=== PATIENT | female | born 2000 | race Caucasian/White ===

== ENCOUNTER 2019-03-20 08:35 | Emergency (ER) | payer BC, SELFPAY ==
[2019-03-20 08:45] VITALS: BP 148/87; PULSE 73; RESP 16; TEMP 36.9; O2SAT 98
--- NOTE | 2019-03-20 08:50 | ED.URI ---
HPI - URI/Sore Throat General Chief Complaint: Upper Respiratory Infection Stated Complaint: sore throat and congestion Time Seen by Provider: 03/20/19 08:52 Source: patient and family Mode of arrival: ambulatory Limitations: no limitations History of Present Illness HPI Narrative: Patient presents with a 2-day history of sore throat cough and nasal congestion. Patient has not taken thing over the counter for symptoms denies any fever no shortness of breath no chest pain. Patient denies any drooling and has no trouble swallowing. Patient states she needs a work note because she did call in sick today due to her sore throat. MD elicited complaint: fever, cough, sore throat and nasal congestion Related Data Home Medications Medication Instructions Recorded Confirmed No Home Medications 03/20/19 03/20/19 Allergies Allergy/AdvReac Type Severity Reaction Status Date / Time No Known Allergies Allergy Unknown Verified 03/20/19 08:58 Review of Systems Review of Systems: Narrative: CONSTITUTIONAL: Denies fever, chills, or sweats. EYES: Denies visual changes, redness, or discharge. ENT: Sore throat, nasal congestion and drainage CARDIOVASCULAR: Denies chest pain, palpitations, or edema. RESPIRATORY: Denies cough or dyspnea. GASTROINTESTINAL: Denies abdominal pain, nausea, vomiting, or diarrhea. GENITOURINARY: Denies dysuria or hematuria. SKIN: Denies rash or itching. MUSCULOSKELETAL: Denies back pain, joint pain, or myalgia. NEUROLOGIC: Denies headache, numbness, or weakness. PSYCHIATRIC: Denies anxiety or depression. All systems reviewed & are unremarkable except as noted in HPI and below PMFSH Comments At time of signature, agree with nursing past medical, surgical, social and family history. There is no relevant family history pertinent to the presenting complaint Exam Narrative: Exam Narrative: GENERAL: Well-appearing, well-nourished, and in no acute distress. HEAD: Normocephalic, atraumatic. EYES: PERRLA and EOMI. ENT: Moderate pharyngeal erythremia no exudate no trismus able to open mouth fully. Mild postnasal drainage. Bilateral TM dullness NECK: Supple. CHEST: Clear to auscultation. No respiratory distress. HEART: Regular rate and rhythm. No murmur heard. Normal peripheral pulses. ABDOMEN: Soft, nontender, nondistended, normal active bowel sounds. EXTREMITIES: Normal range of motion. No edema. SKIN: Warm, dry, no rash. NEURO: No focal deficits. Alert and oriented x3. Bhavin Coma Scale Eye Opening: Spontaneous 4 Bhavin Coma Scale Motor: Obeys Commands 6 Bhavin Coma Scale Verbal: Oriented 5 Nilwood Coma Scale Total 15 Course Vital Signs Vital signs: Vital Signs Temperature 36.9 C 03/20/19 08:45 Pulse Rate 73 03/20/19 08:45 Respiratory Rate 16 03/20/19 08:45 Blood Pressure 148/87 H 03/20/19 08:45 Pulse Oximetry 98 03/20/19 08:45 Temperature 36.9 C 03/20/19 08:45 Pulse Rate 73 03/20/19 08:45 Respiratory Rate 16 03/20/19 08:45 Blood Pressure 148/87 H 03/20/19 08:45 Pulse Oximetry 98 03/20/19 08:45 Addressed elevated BP today. Today's blood pressure higher than recommended range. Discussed importance of follow -up with PCP and possible retirement effects/cardiovascular events related to HTN. Currently patient denies headache, dizziness, vision changes, CP or shortness of breath. Please CRISTINA schedule a followup visit with your personal physician for further evaluation and treatment. Including recheck and discussion of your blood pressure. If your symptoms persist, change or worsen significantly before you can contact your personal physician then please, without delay, go to the emergency department for further evaluation MDM - URI/Sore Throat Differential Diagnosis Differential diagnosis: Likely upper respiratory infection, otitis media, sinusitis and viral infection Lab Data Labs: Strep Screen Positive Group A Strep *(Reference Range: Negative)*
== END 2019-03-20 09:00 | disposition home or self-care (01) ==
PROVIDERS: Emergency Provider Nurse Practitioner Family
DX: J02.0 Streptococcal pharyngitis (principal)
CPT/HCPCS: 87880; 99213; G0463

== ENCOUNTER 2021-02-14 10:04 | Emergency (ER) | payer SELFPAY ==
--- NOTE | 2021-02-14 10:10 | ED.URI ---
HPI - URI/Sore Throat General Chief Complaint: Abdominal Pain Stated Complaint: nausea fever Time Seen by Provider: 02/14/21 10:10 Source: patient and RN notes reviewed History of Present Illness HPI Narrative: Patient is a 20-year-old female who presents the urgent care with complaints of abdominal pain, nausea, vomiting, diarrhea. Patient states that her symptoms started last night and she is aware that she needs her gallbladder removed. Patient has an appointment at [facility] on 28 February for the removal however her symptoms have exacerbated. Patient has not called her surgeon. States that the medication that they gave her for her abdominal pain is out . Patient is tearful but otherwise no acute distress noted. Patient aware of the plan of care. Some parts of this dictation were generated by voice recognition software and may contain typographical and/or grammatical inaccuracies. Related Data Home Medications Medication Instructions Recorded Confirmed No Home Medications 03/20/19 03/20/19 Allergies Allergy/AdvReac Type Severity Reaction Status Date / Time No Known Allergies Allergy Unknown Verified 02/14/21 10:35 Review of Systems Review of Systems: CONSTITUTIONAL: Denies fever, chills, or sweats. EYES: Denies visual changes, redness, or discharge. ENT: Denies rhinorrhea, congestion, sore throat, or otalgia. CARDIOVASCULAR: Denies chest pain, palpitations, or edema. RESPIRATORY: Denies cough or dyspnea. GASTROINTESTINAL: Reports abdominal pain, nausea, vomiting GENITOURINARY: Denies dysuria or hematuria. SKIN: Denies rash or itching. MUSCULOSKELETAL: Denies back pain, joint pain, or myalgia. NEUROLOGIC: Denies headache, numbness, or weakness. All other systems reviewed are negative, except as documented in HPI. PMFSH Comments At the time of my signature, I reviewed and agree with the nursing past medical, surgical, social, and family history. There is no relevant family history pertinent to the patient complaint. Exam Narrative: GENERAL: This is a well-nourished, well-developed patient, in no apparent distress. Tearful HEAD: normocephalic, atraumatic. EYES: PERRL. Sclera clear/white. Vision is grossly intact. EARS: External ears normal NOSE: External nose normal with no obvious nasal discharge, nares without redness, no rhinorrhea. THROAT: Mucous membranes moist NECK: Neck supple CARDIOVASCULAR: Regular rate and rhythm without murmurs, gallops, or rubs. RESPIRATORY: Clear to auscultation. Breath sounds equal bilaterally. No wheezes, rales, or rhonchi. GASTROINTESTINAL: Diffuse abdominal tenderness. Bowel sounds are active. Guarding. Moderate tenderness to the right upper quadrant SKIN: warm, intact with no suspicious lesions or rash, good texture and turgor. NEURO: awake, alert, and oriented to person, place and time. There were no obvious focal neurologic abnormalities. EXTREMITIES: No clubbing, cyanosis, or edema. Course Course Level of Care: Express Care Visit Vital Signs Vital signs: Vital Signs Temperature 99.5 F 02/14/21 10:15 Pulse Rate 88 02/14/21 10:15 Respiratory Rate 16 02/14/21 10:15 Blood Pressure 130/74 02/14/21 10:15 Pulse Oximetry 98 02/14/21 10:15 Temperature 99.5 F 02/14/21 10:15 Pulse Rate 88 02/14/21 10:15 Respiratory Rate 16 02/14/21 10:15 Blood Pressure 130/74 02/14/21 10:15 Pulse Oximetry 98 02/14/21 10:15 Reviewed MDM - URI/Sore Throat MDM Narrative Medical decision making narrative: Advised the patient to go to the emergency room based on her symptoms. It would be advised to go to the hospital that your surgery is scheduled for on February 28. Until then remain n.p.o., do not eat or drink anything. Patient does not wish to be transferred to the emergency room but is aware that she needs to go directly to the emergency room after she collects her belongings at home and prepares for possible admission. Patient is currently s
[2021-02-14 10:15] VITALS: BP 130/74; PULSE 88; RESP 16; TEMP 37.5; O2SAT 98
== END 2021-02-14 10:40 | disposition home or self-care (01) ==
PROVIDERS: Emergency Provider Nurse Practitioner Family
DX: K82.9 Disease of gallbladder, unspecified (principal)
CPT/HCPCS: 99211; G0463

== ENCOUNTER 2022-09-21 12:44 | Emergency (ER) | payer OTHER, SELFPAY ==
[2022-09-21 12:58] VITALS: BP 130/80; PULSE 69; RESP 16; TEMP 36.8; O2SAT 99
--- NOTE | 2022-09-21 13:01 | ED.EYEPROB ---
HPI - Eye Problem General Chief complaint: Eye Problems Stated complaint: Bleach in Eye Source: patient and RN notes reviewed History of Present Illness HPI Narrative: 22 yo F presents to urgent care with complaints of right eye pain. 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 Pt presents with burning to her right eye. Pt does not wear contacts or glasses. Pt presents picture of product which was Zep Mold and Mildew [employer]. Related Data Home Medications Medication Instructions Recorded Confirmed No Home Medications 09/21/22 09/21/22 Allergies Allergy/AdvReac Type Severity Reaction Status Date / Time No Known Allergies Allergy Unknown Verified 09/21/22 13:05 Review of Systems Review of Systems: CONSTITUTIONAL: Denies fever, chills, or sweats. EYES: right eye pain ENT: Denies otalgia and sore throat CARDIOVASCULAR: Denies chest pain, palpitations, or edema. RESPIRATORY: Denies cough or dyspnea. GASTROINTESTINAL: Denies abdominal pain, nausea, vomiting, or diarrhea. GENITOURINARY: Denies dysuria or hematuria. SKIN: burning skin around right lateral orbit MUSCULOSKELETAL: Denies back pain, joint pain, or myalgia. NEUROLOGIC: Denies headache, numbness, or weakness. Pertinent positives per HPI. [facility] Family History Family History (Updated 10/26/21 @ 10:45 by Manisha Mehta MA) Father Diabetes mellitus Mother Disorder of thyroid Social History Social History (Updated 10/26/21 @ 10:48 by Manisha Mehta MA) Tobacco type: e-cigarettes/vaping Alcohol intake: current Alcohol use details: occasionally Substance use: never Living arrangements: with family Gender identity (if verbalized by the patient): Female Comments At the time of my signature, I reviewed and agree with the nursing past medical, surgical, social, and family history. There is no relevant family history pertinent to the patient complaint. Exam Narrative: GENERAL: This is a well-nourished, well-developed patient, in no apparent distress. HEAD: normocephalic, atraumatic. EYES: Sclera clear/white. Pt able to open her affected eye. Reports mild photophobia EARS: External ears normal, auditory canals clear and without drainage, TMs normal without perforation. Hearing grossly intact. NOSE: External nose normal with no obvious nasal discharge, nares without redness, no rhinorrhea. THROAT: Mucous membranes moist, posterior pharynx clear. NECK: Neck supple, non-tender without lymphadenopathy, masses or thyromegaly. CARDIOVASCULAR: Regular rate RESPIRATORY: No respiratory distress SKIN: mildly erythremic skin noted around right lateral orbit. NEURO: awake, alert, and oriented to person, place and time. There were no obvious focal neurologic abnormalities. Course Course Level of Care: Express Care Visit Vital Signs Vital signs: Vital Signs Temperature 98.2 F 09/21/22 12:58 Pulse Rate 69 09/21/22 12:58 Respiratory Rate 16 09/21/22 12:58 Blood Pressure 130/80 09/21/22 12:58 Pulse Oximetry 99 09/21/22 12:58 Oxygen Delivery Room Air 09/21/22 12:58 Temperature 98.2 F 09/21/22 13:06 Pulse Rate 69 09/21/22 13:06 Respiratory Rate 16 09/21/22 13:06 Blood Pressure 130/80 09/21/22 13:06 Pulse Oximetry 99 09/21/22 13:06 Oxygen Delivery Room Air 09/21/22 13:06 Reviewed MDM - Eye Problem MDM Narrative Medical decision making narrative: Spoke to Alma Delia with Poison Control who recommends pt be transferred to ED to evaluate pt's right eye pH. Pt agrees to go to [facility] ED. Report given to Montserrat DUBON and pt is accepted for Shayna Benson NP. Pt is stable and is in no acute distress. Poison control case #: [id number] Differential Diagnosis Differential diagnosis: Likely corneal abrasion, acute iritis and other (eye FB) Critical Care Time Cri
[2022-09-21 13:06] VITALS: BP 130/80; PULSE 69; RESP 16; TEMP 36.8; O2SAT 99
== END 2022-09-21 13:26 | disposition short-term general hospital (02) ==
PROVIDERS: Emergency Provider Nurse Practitioner Family
DX: T26.91XA Corrosion of right eye and adnexa, part unspecified, initial encounter (principal)
CPT/HCPCS: 99212; G0463

== ENCOUNTER 2022-11-17 13:09 | Emergency (ER) | payer OTHER, SELFPAY ==
[2022-11-17 13:21] VITALS: BP 121/87; PULSE 68; RESP 16; TEMP 36.6; O2SAT 97
--- NOTE | 2022-11-17 14:31 | ED.GENADULT ---
HPI - General Adult General Chief complaint: Upper Respiratory Infection Stated complaint: strep throat test Source: patient Mode of arrival: ambulatory Limitations: no limitations History of Present Illness HPI narrative: Patient presents for evaluation of sore throat for the last day. She denies any fever chills, nausea, vomiting, cough, shortness of breath, diarrhea, otalgia. Her on tested positive for strep in the recently spent time with one another. She does use electronic cigarette. She is not taking any medication to assist with her symptoms Related Data Allergies Allergy/AdvReac Type Severity Reaction Status Date / Time No Known Allergies Allergy Unknown Verified 11/17/22 13:25 Review of Systems Review of Systems: CONSTITUTIONAL: Denies fever, chills, or sweats. EYES: Denies visual changes, redness, or discharge. ENT: Reports sore throat denies rhinorrhea, congestion, or otalgia. CARDIOVASCULAR: Denies chest pain, palpitations, or edema. RESPIRATORY: Denies cough or dyspnea. GASTROINTESTINAL: Denies abdominal pain, nausea, vomiting, or diarrhea. GENITOURINARY: Denies dysuria or hematuria. SKIN: Denies rash or itching. MUSCULOSKELETAL: Denies back pain, joint pain, or myalgia. NEUROLOGIC: Denies headache, numbness, dizziness, or weakness. PSYCHIATRIC: Denies anxiety or depression. [facility] Past Medical History Medical History No pertinent past medical history Surgical History Surgical History No pertinent past surgical history Family History Family History Father Diabetes mellitus Mother Disorder of thyroid Social History Social History Smoking status: Current every day smoker Tobacco type: e-cigarettes/vaping Alcohol intake: current Alcohol use details: occasionally Substance use: never Living arrangements: with family Gender identity (if verbalized by the patient): Female Spiritual care concerns: No Exam Narrative: GENERAL: Well-appearing, well-nourished, and in no acute distress. HEAD: Normocephalic, atraumatic. EYES: PERRLA and EOMI. ENT: Nares clear, no rhinorrhea or epistaxis. Mucous membranes moist. Is posterior pharyngeal erythema without exudate. Uvula is midline. Bilateral TMs pearly castro nonbulging NECK: Supple. No adenopathy or masses. No carotid bruits or JVD CHEST: Clear to auscultation. No respiratory distress. No wheezes rales or rhonchi HEART: Regular rate and rhythm. No murmur heard. Normal peripheral pulses. ABDOMEN: Soft, nontender, nondistended, normal active bowel sounds. EXTREMITIES: Normal range of motion. No edema. SKIN: Warm, dry, no rash. NEURO: No focal deficits. Alert and oriented x3. PSYCH: Normal mood and affect. Course Course Emergency Course: This is a 22-year-old female who presented for evaluation of sore throat after recent strep exposure. Rapid strep here negative. Through shared decision making opted to proceed with treatment with amoxicillin due to recent exposure in light of current symptoms. Follow up with primary provider. Go to the emergency department for worsening symptoms. Advised smoking cessation. patient in agreement with plan of care. Level of Care: Express Care Visit Vital Signs Vital signs: Vital Signs Temperature 36.6 C 11/17/22 13:21 Pulse Rate 68 11/17/22 13:21 Respiratory Rate 16 11/17/22 13:21 Blood Pressure 121/87 11/17/22 13:21 Pulse Oximetry 97 11/17/22 13:21 Oxygen Delivery Room Air 11/17/22 13:21 Temperature 36.6 C 11/17/22 13:21 Pulse Rate 68 11/17/22 13:21 Respiratory Rate 16 11/17/22 13:21 Blood Pressure 121/87 11/17/22 13:21 Pulse Oximetry 97 11/17/22 13:21 Oxygen Delivery Room Air 11/17/22 13:21
== END 2022-11-17 14:35 | disposition home or self-care (01) ==
PROVIDERS: Emergency Provider Nurse Practitioner
DX: J02.9 Acute pharyngitis, unspecified (principal); Z20.818 Contact with and (suspected) exposure to other bacterial communicable diseases; Z20.822 Contact with and (suspected) exposure to COVID-19; F17.290 Nicotine dependence, other tobacco product, uncomplicated
CPT/HCPCS: 87081; 87426; 87804; 87880; 99213; C9803; G0463

== ENCOUNTER 2023-08-11 09:47 | Emergency (ER) | payer OTHER, SELFPAY ==
[2023-08-11 09:54] VITALS: BP 135/89; PULSE 70; RESP 20; TEMP 36.4; O2SAT 97
[2023-08-11 09:55] VITALS: BP 135/89; PULSE 70; RESP 20; TEMP 36.4; O2SAT 97
--- NOTE | 2023-08-11 10:04 | ED.NAVMDI ---
HPI - Nausea/Vomiting/Diarrhea General Chief complaint: Nausea/Vomiting/Diarrhea Stated complaint: nausea Time Seen by Provider: 08/11/23 10:04 Source: patient, RN notes reviewed and old records reviewed Mode of arrival: ambulatory Limitations: no limitations History of Present Illness HPI Narrative: patient presents to [facility] with complaints of nausea and vomiting that began overnight. She reports that her brother was sick last week with the same symptoms. She is requesting a work note. She reports that she has been able to drink water since her last episode of vomiting earlier this morning. She voices no other concerns or complaints today Related Data Allergies Allergy/AdvReac Type Severity Reaction Status Date / Time No Known Allergies Allergy Unknown Verified 07/04/23 12:48 Review of Systems Review of Systems: All systems reviewed & are unremarkable except as noted in HPI and below Constitutional: Constitutional: Reports no additional constitutional complaints ENT: Reports system reviewed and no additional complaints, except as documented Cardiovascular: Cardiovascular: Reports no additional cardiovascular complaints Respiratory: Respiratory: Reports no additional respiratory complaints Gastrointestinal: Gastrointestinal: Denies abdominal pain, Denies diarrhea, Reports nausea and Reports vomiting PMF Past Medical History Medical History No pertinent past medical history Surgical History Surgical History No pertinent past surgical history Family History Family History Father Diabetes mellitus Mother Disorder of thyroid Social History Social History Smoking status: Current every day smoker Tobacco type: e-cigarettes/vaping Alcohol intake: current Alcohol use details: occasionally Substance use: never Do You Feel Safe in your Home?: Yes Lack of Transportation: No Lack of Food: Never True Current Housing: I Have Housing Concerned About Future Housing: No Difficulty Paying Gas/Electric Bills: No Difficulty Paying for Meds: No Currently Unemployed: YES Education: High School Diploma/GED Difficulty w/ Childcare or Family Care: No Living arrangements: with family Occupation/Education: occupation Additional occupation/education comments: [employer] Gender identity (if verbalized by the patient): Female Sexual Orientation (if Verbalized by the Patient): Straight or Heterosexual Spiritual care concerns: No Agree to blood products: Yes Comments At the time of my signature, I reviewed and agree with the nursing past medical, surgical, social, and family history. There is no relevant family history pertinent to the patient complaint. Exam Const: General: cooperative, no acute distress, alert and awake Orientation/consciousness: oriented to person, oriented to place and oriented to time HENMT: Head: normal to inspection Resp: Effort & Inspection: normal respiratory effort and able to speak in complete sentences Auscultation: clear to auscultation bilaterally, no crackles, no rales, no rhonchi and no wheezes Cardio: Palpation: normal PMI Rate: regular rate Rhythm: regular rhythm Heart sounds: S1 normal heart sound present and S2 normal heart sound present GI: Inspection: normal to inspection GI Palp: No abdominal tenderness, Yes Soft to palpation, No Tenderness to palpation present (GI), No Guarding due to palpation present (GI) and No Rigid due to palpation Auscultation: normal bowel sounds Neuro: General: oriented to person, oriented to place and oriented to time Cranial nerves: Yes CN's II-XII intact bilaterally Psych: Appearance: grossly normal Thought process: Normal thought process present Insight: Good insight
== END 2023-08-11 10:20 | disposition home or self-care (01) ==
PROVIDERS: Emergency Provider Nurse Practitioner Family; PCP Family Medicine
DX: K52.9 Noninfective gastroenteritis and colitis, unspecified (principal); E03.0 Congenital hypothyroidism with diffuse goiter; F17.290 Nicotine dependence, other tobacco product, uncomplicated
CPT/HCPCS: 99211; G0463

== ENCOUNTER 2024-06-15 08:04 | Emergency (ER) | payer OTHER, SELFPAY ==
[2024-06-15 08:10] VITALS: BP 135/88; PULSE 60; RESP 20; TEMP 36.5; O2SAT 98
--- OUTSIDE RECORDS SUMMARY | 2024-06-15 08:11 | XMS_ITS | Clinical Summary ---
Author Organization [facility] Address [address] [place] [address] Care Team Providers Care Grinding Wheel Dresser Name Role Phone Eleonora Donahue HOST/HOSTESS RESTAURANT Primary Care Provider [phone] Allergies No known active allergies Medications chlorhexidine (PERIDEX) 0.12 % solution Swish 15 mL in mouth for 30 seconds then spit out twice a day after brushing teeth, 473 mL 9 Active Additional Information Patient not taking.Reported on 10/29/2023 famotidine (PEPCID) 20 mg tablet Take 1 tablet (20 mg total) by mouth 2 (two) times a day for 7 days 14 tablet 2 Active ondansetron (ZOFRAN) 4 mg tablet Take 1 tablet (4 mg total) by mouth every 6 (six) hours 12 tablet 2 Active Additional Information Patient not taking.Reported on 10/29/2023 Active Problems Problem Noted Date Diagnosed Date Knee pain 01/31/2015 Overview (05/19/2016): Knee pain Surgical History Surgery Date Site/Laterality Comments TONSILLECTOMY Bilateral Medical History Medical History Date Comments Hx Other Medical T&A January 30,; Comments: MCKINLEY 02/01/2015 - Hx Other Medical Fx. collar bone 2012.; Comments: MCKINLEY 02/01/2015 - Gallstones Family History Medical History Relation Name Comments Other Other Family history of diabetes, hypertension and kidney disease.; Relation Name Status Comments Other Social History Tobacco Use Types Packs/Day Years Used Date Smoking Tobacco: Every Day Cigarettes Smokeless Tobacco: Never Tobacco Cessation:Ready to Q uit: Not Asked; Counseling Given: Not Answered Alcohol Use Standard Drinks/Week Comments Yes 0 (1 standard drink = 0.6 oz pur e alcohol) Comments No Sex and Gender Information Value Date Recorded Sex Assigned at Not on file 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 Gender Identity Not on file Sexual Orientation Not on file Obstetrics History Last Filed Vital Signs Vital Sign Reading Time Taken Comments Blood Pressure 128/80 10/29/2023 2:50 PM CDT Pulse 90 10/29/2023 2:50 PM CDT Temperature 36.9 C (98.4 F) 10/29/2023 2:50 PM CDT Respiratory Rate 20 10/29/2023 2:50 PM CDT Oxygen Saturation 99% 10/29/2023 2:50 PM CDT Inhaled Oxygen Concentration - - Weight 86.2 kg (190 lb) 10/29/2023 2:50 PM CDT Height 162.6 cm (5' 4 ) 10/29/2023 2:50 PM CDT Body Mass Index 32.61 10/29/2023 2:50 PM CDT Plan of Treatment Health Maintenance Due Date Last Done Comments Cervical Cancer Screening 1999 Depression Screening 1999 Hepatitis C Screening 1999 Pneumococcal vaccine <65 (1 of 1 - PPSV23) 06/10/2005 10/14/2002, 03/12/2000 HPV Vaccines (1 - 3-dose series) 06/10/2014 Regular Well Visit/Exam 18-64 06/10/2017 DTaP/Tdap/Td Vaccine (7 - Td or Tdap) 09/21/2020 09/21/2010, 05/25/2004, 08/06/2002, Additional history exists Influenza Vaccine (Season Ended) 2024 12/30/2014, 03/03/2013, 01/09/2005 Hepatitis B Screening Completed 03/12/2000 , 02/14/2000, 1999, Additional history exists Varicella Vaccines Completed 06/10/2007, 08/21/2000 Insurance [facility] Care Teams Grinding Wheel Dresser Relationship Specialty Start Date End Date Eleonora Donahue NP [address] [place] [address] PCP - General Nurse Practitioner 11/04/23
--- OUTSIDE RECORDS SUMMARY | 2024-06-15 08:11 | XMS_ITS | Referral Summary ---
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
--- OUTSIDE RECORDS SUMMARY | 2024-06-15 08:11 | XMS_ITS | Encounter Summary ---
Author Organization [facility] Address [address] [place] [address] Phone Care Team Providers Care Vp Scientific Affairs Name Role Phone Provider, None Primary Care Provider Unavailabl e Arsalan Diop MD Unavailable Encounter Details Date Type Department Care Team (Late st Contact Info) Description 12/08/2021 Transcribe Orders [facility] Preop/Pacu II 1 [place] [id number] Arsalan Diop MD #[address] [address] Pre-op testing (Primary Dx) Social History Tobacco Use Types Packs/Day Years Used Date Smoking Tobacco: Never Smokeless Tobacco: Never Alcohol Use Standard Drinks/Week Comments Never 0 (1 standard drink = 0.6 oz pur e alcohol) Sexually Active Control Partners Comments Not Currently None Male Comments No Sex and Gender Information Value Date Recorded Sex Assigned at Not on file Legal Sex Female 9:14 PM CDT Gender Identity Not on file Sexual Orientation Not on file COVID-19 Exposure Response Date Recorded In the last 10 days, have yo u been in contact with someone who was confirmed or suspected to have Coronavirus/COVID-19? No / Unsure 12/08/2021 3:10 PM CDT documented as of this encounter Plan of Treatment Not on file documented as of this encounter Results * SARS-COV-2 BY MOLECULAR (12/16/2021 12:46 PM CDT) SARSCOV2 NOT DETECTED (Referenc e Range for this test is Not Detected) [facility] ID NOW 12/16/2021 1:16 PM CDT [facility] Comment:This test was perfor med by a MOLECULAR, NON-PCR method Other NASOPHARYNGEAL STRUCTURE / Unknown Non-Phlebotomy Collection / Unknown 12/16/2021 12:46 PM CDT 12/16/2021 12:54 PM CDT Narrative [facility] - 12/16/2021 1:16 PM CDT This test has been authorized by the FDA under an Emergency Use Authorization (EUA) only. Negative results should be treated as presumptive and, if inconsistent with clinical signs and symptoms or necessary for patient management, the patient should be tested with an alternative molecular assay. Negative results do not preclude SARS-CoV-2 infection or any other respiratory pathogen. Additional information for Clinicians can be found at: https://www.fda.gov/media/350440/download Additional information for Patients can be found at: https://www.fda.gov/media/601502/download Arsalan Diop MD MICROBIOLOGY - GENERAL ORDERABLE S Final Result [facility] [address] [place] [address] documented in this encounter Visit Diagnoses Diagnosis Pre-op testing- Primary Preoperative examination, unspecified documented in this encounter Care Teams Vp Scientific Affairs Relationship Specialty Start Date End Date Provider, None [place] PCP - General 10/14/21 Arsalan Diop MD [address] [facility] [address] [address] Consulting Physician Colon and Rectal Surgery 10/18/21 documented as of this encounter
--- OUTSIDE RECORDS SUMMARY | 2024-06-15 08:11 | XMS_ITS | Clinical Summary ---
Author Organization [facility] Address [address] [place] [address] Phone Care Team Providers Care Director Asset Name Role Phone Provider, None Primary Care Provider Arsalan Hair MD Unavailable Allergies No known active allergies Medications IBUPROFEN PO Take 1 Tablet by mouth as needed. Active acetaminophen (TYLENOL) 325 MG Tablet Take 1 Tablet by mouth every 6 hours as needed for Fever (for temperature greater than 100.4 F.). Do not exceed 4000 mg of acetaminophen in 24 hour from all sources. 12/19/19 Active oxyCODONE (ROXICODONE) 5 MG TabletIndications :Calculus of gallbladder with cholecystitis of other acuity without obstruction Take 1 Tablet by mouth every 4 hours as needed for Severe pain. 10 Tablet 12/19/19 Active Additional Information Patient not taking.Reported on 10/28/2023 ondansetron (Zofran) 4 MG Tablet Take 1 Tablet by mouth every 8 hours as needed for Nausea - 1st line. 15 Tablet 12/23/19 Active Additional Information Patient not taking.Reported on 01/02/2022 ondansetron (ZOFRAN) 4 MG Tablet Take 1-2 Tablets by mouth every 8 hours as needed for Nausea - 1st line. 10 Tablet 12/23/19 Active Additional Information Patient not taking.Reported on 10/28/2023 traMADol (ULTRAM) 50 MG TabletIndications :Post-operative pain Take 1 Tablet by mouth every 8 hours as needed for Moderate or more severe pain. 12 Tablet 12/24/19 Active Additional Information Patient not taking.Reported on 10/28/2023 ketorolac (TORADOL) 10 MG Tablet Take 1 Tablet by mouth every 6 hours as needed for Moderate or more severe pain. 20 Tablet 04/12/19 Active Additional Information Patient not taking.Reported on 10/28/2023 ondansetron (ZOFRAN-ODT) 4 MG TABLET DISPERSIBLE Take 1 Tablet by mouth every 8 hours as needed for Nausea - 1st line. 20 Tablet 04/12/19 Active Additional Information Patient not taking.Reported on 10/28/2023 silver sulfADIAZINE (SILVADENE) 1 % Cream Apply 2 times daily. Application Site: R arm and R leg 25 g 08/29/19 Active Additional Information Patient not taking.Reported on 10/28/2023 Active Problems No known active problems Family History Medical History Relation Name Comments No Known Problems Brother 1 No Known Problems Brother 2 Diabetes Father Other-comment Father Kidney transpl ant Diabetes Maternal Grandfather Renal Failure Maternal Grandfather Dementia Maternal Grandmother Thyroid Disease Mother Diabetes Paternal Grandfather Renal Failure Paternal Grandfather No Known Problems Paternal Grandmother Relation Name Status Comments Brother 1 Alive Brother 2 Alive Father Alive Maternal Grandfather Alive Maternal Grandmother Alive Mother Alive Paternal Grandfather Alive Paternal Grandmother Alive Social History Tobacco Use Types Packs/Day Years [...] Sign Reading Time Taken Comments Blood Pressure 130/84 10/28/2023 5:54 PM CDT Pulse 98 10/28/2023 5:54 PM CDT Temperature 36.6 C (97.8 F) 10/28/2023 5:54 PM CDT Respiratory Rate 18 10/28/2023 5:54 PM CDT Oxygen Saturation 98% 10/28/2023 5:54 PM CDT Inhaled Oxygen Concentration - - Weight 82.6 kg (182 lb) 08/29/2023 2:17 PM CDT Height 162.6 cm (5' 4 ) 08/29/2023 2:17 PM CDT Body Mass Index 31.24 08/29/2023 2:17 PM CDT Plan of Treatment Health Maintenance Due Date Last Done Comments Hepatitis C Virus (HCV) Screening 2000 Human Papillomavirus (HPV) Immunization (1 - 3-dose series) 06/10/2014 Pap Smear 06/10/2020 Influenza Immunization (#1) 10/13/202312/12, 03/03/2013, 01/09/2005 SARS-COV-2 Immunization ( season) 2023 Respiratory Syncytial Virus (RSV) Immunization (Adult) (1 - 1-dose 75+ series) 06/10/2074 Hepatitis B Immunization Completed 001, 02/14/2000, 1999, Additional history exists Pneumococcal Immunization Combined Aged Out 10/14/2002, 03/12/2000 No longer eligibl e based on patient's age to complete this topic DTaP/Tdap/Td Immunization Discontinued 2010, 05/25/2004, 08/06/2002, Additional history exists TdaP Immunization Completed 09/21/2010 Meningococcal Immunization (ACWY) Completed 10/24/2016, 09/21/2010 Rotavirus Immunization Aged Out No lo nger eligible based on patient's age to complete this topic Insurance * Guarantor: Lenka Kwok Account Type Relation to Patient Date of Phone Billing Address Personal/Family Self 2000 [address] [place] [address] [place]ICAID [place] * Guarantor: Lenka Kwok Account Type Relation to Patient Date of Phone Billing Address Third Constitution Party Liability Self 2000 [address] [place] [address] [place]ICAID [place] Care Teams Director Asset Relationship Specialty Start Date End Date Provider, None [place] PCP - General 10/14/21 Arsalan Diop MD #[address] [address] Consulting Physician Colon and Rectal Surgery 10/18/21
--- NOTE | 2024-06-15 08:16 | ED.ABDPAIN ---
HPI - Abdominal Pain General Chief Complaint: Nausea/Vomiting/Diarrhea Stated Complaint: Vomitng Source: patient and RN notes reviewed Mode of arrival: ambulatory Limitations: no limitations History of Present Illness HPI narrative: 24-year-old female presented for complaint of nausea vomiting, and diarrhea. Onset 399. Last emesis 629. LMP 4-6 weeks ago. Denies abdominal pain, fever, hematochezia or melena. Reports sick contacts with flu. Related Data Allergies Allergy/AdvReac Type Severity Reaction Status Date / Time No Known Allergies Allergy Unknown Verified 06/15/24 08:20 Review of Systems Review of Systems: CONSTITUTIONAL: Denies body aches, fever, chills ENT: Denies rhinorrhea, congestion CARDIOVASCULAR: Denies chest pain, palpitations, or edema. RESPIRATORY: Denies cough or dyspnea. GASTROINTESTINAL: Endorses nausea, vomiting, diarrhea. Denies abdominal pain, hematochezia, melena, hematemesis GENITOURINARY: Denies dysuria, hematuria, or CVA tenderness. SKIN: Denies rash, itching, or wounds. MUSCULOSKELETAL: Denies back pain, joint pain, or myalgia. NEUROLOGIC: Denies headache, numbness, tingling, or weakness. All systems reviewed & are unremarkable except as noted in HPI and below PMFSH Past Medical History Medical History No pertinent past medical history Surgical History Surgical History No pertinent past surgical history Family History Family History Father Diabetes mellitus Mother Disorder of thyroid Social History Social History Smoking status: Current every day smoker Tobacco type: cigarettes Alcohol intake: current Alcohol use details: occasionally Substance use: never Do You Feel Safe in your Home?: Yes Lack of Transportation: No Lack of Food: Never True Current Housing: I Have Housing Concerned About Future Housing: No Difficulty Paying Gas/Electric Bills: No Difficulty Paying for Meds: No Currently Unemployed: YES Education: High School Diploma/GED Difficulty w/ Childcare or Family Care: No Living arrangements: with family Occupation/Education: occupation Additional occupation/education comments: [employer] Gender identity (if verbalized by the patient): Female Sexual Orientation (if Verbalized by the Patient): Straight or Heterosexual Spiritual care concerns: No Agree to blood products: Yes Comments At time of signature, I have reviewed and agree with nursing past medical, surgical, social and family history unless otherwise noted. Please see nursing chart for further information. There is no relevant family history pertinent to the presenting complaint Exam Narrative: GENERAL: Well-appearing EYES: EOMI. Conjunctivae normal. ENT: Mucous membranes pink and moist. CHEST: No respiratory distress. Clear to auscultation. HEART: Regular rate and rhythm. No murmur appreciated. Normal peripheral pulses. ABDOMEN: abd soft, nondistended, normal active bowel sounds. Nontender abdomen; No guarding, rebound tenderness, asymmetry EXTREMITIES: Normal range of motion. No edema. SKIN: Warm, dry, no rash. Capillary refill normal. Normal skin turgor. NEURO: No focal deficits. Alert and oriented x3. PSYCH: Normal affect. Course Course Emergency Course: Patient is aware of diagnosis, understands and agrees to treatment plan. Anticipatory guidance given. Patient agrees to follow-up as directed and is aware of reasons to seek care at the emergency department. Portions of this record may have been created with voice recognition software Level of Care: Express Care Visit Vital Signs Vital signs: Vital Signs Temperature 97.7 F 06/15/24 08:10 Pulse Rate 60 06/15/24 08:10 Respiratory Rate 20 06/15/24 08:10 Blood Pressure 135/88 06/15/24 08:10 Pulse Oximetry 98 06/15/24 08:10 Oxygen Delivery Room Air 06/15/24 08:10 Temperature 97.7 F 06/15/24 08:10 Pulse Rate 60 06/15/24 08:10 Respiratory Rate 20 06/15/24 08:10 Blood Pressure 135/88 06/15/24 08:10 Pulse Oximetry 98 06/15/24 08:10 Oxygen Delivery Room Air 06/15/24 08:10 MDM - Abdominal Pain MDM Narrative Medical decision making narrative: Urine preg neg, advised to closely monitor and retest as needed. Neg flu/covid. Discussed physical exam findings and test results. Rx ondansetron. Advised supportive measures and signs/symptoms to go to the ER. Pt is appropriate for outpt treatment and f/u. Differential Diagnosis Differential diagnosis: Likely abdominal pain, acute appendicitis, calculus of kidney, constipation, diverticulitis, endometriosis, gastroenteritis, pancreatitis and small bowel obstruction Discharge Plan Discharge Clinical Impression: Nausea vomiting and diarrhea Patient Disposition: Home Condition: Stable Instructions: Antibiotic Form, Gastroenteritis (ED) Additional Instructions: Negative urine test. Recommend retesting as needed based on cycle. Your rapid covid/flu test was negative today. It may be too early to detect the virus, therefore we recommend retesting at home in 1-2 days Continue to follow general precautions: frequent handwashing, wear a mask, isolate/social distance, and avoid crowds if you have a fever. You must be fever free for 24 hours without the use of fever reducing medication (Tylenol/ibuprofen) before returning to work/school/crowds. Stay hydrated. Take small sips of fluid containing electrolytes frequently. Clear liquids (broth, jello, tea, sprite, pedialyte) Slowly advance to [place] foods (bananas, rice, applesauce, toast, crackers) Avoid fatty, greasy, fried or spicy foods. Limit dairy until symptoms are improved. Ondansetron RX as needed for nausea You should go to the hospital if you experience persistent nausea and vomiting that does not resolve and does not allow you to tolerate any food or fluids, fevers, increasing abdominal pain, persistent diarrhea, dizziness, fainting, or for any other concerns. Follow up with primary care provider in 3 days. Patient Language: Urdu Prescriptions: New ondansetron 4 mg tablet,disintegrating 4 mg PO Q8H PRN (Reason: nausea and vomiting) Qty: 20 0RF Follow-up/Referrals: Sudhir Murray MD [Primary Care Provider] - Stand Alone Forms: Work/School Release IP Time of Disposition: 08:57
[2024-06-15 11:57] LABS: BEDSIDEPREGUCG Negative (Negative); EDCOVIDSCREEN Negative (Negative); EDINFLUASCREEN Negative (Negative); EDINFLUBSCREEN Negative (Negative); EDUAAPPEAR Cloudy; EDUABILI Negative (Negative); EDUABLOOD Negative (Negative); EDUACOLOR1 Yellow; EDUAGLUCOSE Negative (Negative); EDUAKETONE Negative (Negative); EDUALEUKO Negative (Negative); EDUANITRATE Negative (Negative); EDUAPROTEIN Negative (Negative); EDUAUROBILI 0.2
== END 2024-06-15 09:02 | disposition home or self-care (01) ==
PROVIDERS: Emergency Provider Nurse Practitioner Family; PCP Family Medicine
DX: R11.2 Nausea with vomiting, unspecified (principal); R19.7 Diarrhea, unspecified; F17.210 Nicotine dependence, cigarettes, uncomplicated; Z20.822 Contact with and (suspected) exposure to COVID-19
CPT/HCPCS: 81003; 81025; 87426; 87804; 99213; G0463

== ENCOUNTER 2024-11-22 10:53 | Emergency (ER) | payer MEDICAID, SELFPAY ==
--- OUTSIDE RECORDS SUMMARY | 2024-11-22 10:55 | XMS_ITS | Clinical Summary ---
Author Organization [facility] Address [address] [place] [address] Phone Care Team Providers Care Horse Stud Manager Name Role Phone Arsalan Diop MD Unavailable Sudhir Murray MD Primary Care Provider [phone] Allergies No known active allergies Medications IBUPROFEN [...] Sign Reading Time Taken Comments Blood Pressure 118/73 06/24/2024 9:30 AM CDT Pulse 85 06/24/2024 9:30 AM CDT Temperature 37.1 C (98.8 F) 06/24/2024 8:20 AM CDT Respiratory Rate 20 06/24/2024 8:20 AM CDT Oxygen Saturation 99% 06/24/2024 9:30 AM CDT Inhaled Oxygen Concentration - - Weight 88.7 kg (195 lb 8.8 oz) 06/24/2024 8:20 A M CDT Height 162.6 cm (5' 4) 06/24/2024 8:20 AM CDT Body Mass Index 33.57 06/24/2024 8:20 AM CDT Plan of Treatment Health Maintenance Due Date Last Done Comments Hepatitis C Virus (HCV) Screening 2000 Human Papillomavirus (HPV) Immunization (1 - 3-dose series) 06/10/2014 Pap Smear 06/10/2020 Influenza Immunization (#1) 10/12/202412/12, 03/03/2013, 01/09/2005 SARS-COV-2 Immunization ( season) 2024 Respiratory Syncytial Virus (RSV) Immunization (Adult) (1 [...] patient's age to complete this topic Insurance MEDICAID [place] [facility] GENER[facility] * Guarantor: Lenka Kwok Account Type Relation to Patient Date of Phone Billing Address Third Democrat Liability Self [address] [place] [address] [place]ICA[place] Care Teams Horse Stud Manager Relationship Specialty Start Date End Date Sudhir Murray MD [address] [place] [address] PCP - General Family Medicine 06/24/24 Arsalan Diop MD #[address] [address] Consulting Physician Colon and Rectal Surgery 10/18/21
--- OUTSIDE RECORDS SUMMARY | 2024-11-22 10:55 | XMS_ITS | Clinical Summary ---
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 Gender Identity Not on file Sexual Orientation [...] 2:50 PM CDT Height 162.6 cm (5' 4) 10/29/2023 2:50 PM CDT Body Mass Index 32.61 10/29/2023 2:50 PM CDT Plan of Treatment Health Maintenance Due Date Last Done Comments Cervical Cancer Screening 1999 Depression Screening 1999 Hepatitis C Screening 2000 Pneumococcal vaccine <65 (1 of 1 - PPSV23, PCV20, or PCV21) 06/10/2005 10/14/2002, 03/12/2000 HPV Vaccines (1 - 3-dose series) 06/10/2014 Regular Well Visit/Exam 18-64 06/10/2017 DTaP/Tdap/Td Vaccine (7 - Td or Tdap) 09/21/2020 09/21/2010, 05/25/2004, 08/06/2002, Additional history exists Influenza Vaccine (#1) 2024 5, 03/03/2013, 01/09/2005 Hepatitis B Screening Completed 03/12/2000 , 02/14/2000, 1999, Additional history exists Varicella Vaccines Completed 06/10/2007, 08/21/2000 Insurance [place] [facility] [place] [facility] [address] [facility] Care Teams Building Services Technician Relationship Specialty Start Date End Date Eleonora Donahue NP [address] [place] [address] PCP - General Nurse Practitioner 11/04/23
[2024-11-22 10:57] VITALS: BP 134/96; PULSE 86; RESP 16; TEMP 36.6; O2SAT 99
--- OUTSIDE RECORDS SUMMARY | 2024-11-22 11:00 | XMS_ITS | Encounter Summary ---
Author Organization [facility] Address [address] [place] [address] Phone Care Team Providers Care Rn Icu Name Role Phone Provider, None Primary Care Provider Arsalan Hair MD Unavailable Sudhir Murray MD Primary Care Provider Encounter Details Date Type Department Care Team (Late st Contact Info) Description 12/08/2021 Transcribe Orders [facility] Preop/Pacu II [address] [place] [address] Arsalan Diop MD #[address] [address] Pre-op testing (Primary Dx) Social History Tobacco [...] Range for this test is Not Detected) [facility] ID NOW 12/16/2021 1:16 PM CDT [facility] Comment:This test was perfor med by a MOLECULAR, NON-PCR method Other NASOPHARYNGEAL STRUCTURE / Unknown Non-Phlebotomy Collection / Unknown 12/16/2021 12:46 PM CDT 12/16/2021 12:54 PM CDT Narrative [facility] - 12/16/2021 1:16 PM CDT This [...] information for Clinicians can be found at: https://www.fda.gov/media/861527/download Additional information for Patients can be found at: https://www.fda.gov/media/456287/download Arsalan Diop MD MICROBIOLOGY - GENERAL ORDERABLE S Final Result [facility] [place] [address] documented in this encounter Visit Diagnoses Diagnosis Pre-op testing- Primary Preoperative examination, unspecified documented in this encounter Additional Health Concerns Infection Onset Date Last Indicated Resolved Time COVID - 19 06/24/2024 06/24/2024 06/24/2024 9:32 AM CDT documented as of this encounter Care Teams Rn Icu Relationship Specialty Start Date End Date Provider, None [place] PCP - General 10/14/21 06/23/24 Sudhir Murray MD [address] [place] [address] PCP - General Family Medicine 06/24/24 Arsalan Diop MD [address] [place] [address] Consulting Physician Colon and Rectal Surgery 10/18/21 documented as of this encounter
--- OUTSIDE RECORDS SUMMARY | 2024-11-22 11:00 | XMS_ITS | Clinical Summary ---
Author Organization [facility] Address [address] [place] [address] Care Team Providers Care Service Technician Name Role Phone Reba Bianchi MD Primary Care Provider [phone] Source Comments [facility],non-owned Affiliates and Associated Physician Practices is amultiple site organization consisting of ambulatory clinics and hospital sitesin [place], [place], [place] and [place]. This disclosure is being madepursuant to the Care Everywhere program and may not contain all information available regarding this patient. Last updated 17.[facility] Allergies No known active allergies Medications * Be aware that medications may not be up to date on this document. Alwaysverify current medications with the patient. 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 She had never been worked up for recurrent UTI. Patient needs work up to figure out the cause of her recurrent UTI in order to correct it and preserve kidney function Plan: - US - IMPRESSION: Right kidney large for age. Otherwise, normal exam -To do VCUG when the infection is cured. Acute pyelonephritis 12/30/2010 Overview (01/03/2011): 10 year old female presented with dysuria,frequency,fever,chills,vomiting for three days. On exam, she was dehydrated, febrile, tachycardic, has tenderness in the right CVA. Lab test revealed leukocytosis and pyuria. Blood and urine cultures were obtained in [facility]. Assessment: Acute pyelonephritis with dehydration: Plan: - Pt is clinically stable and afebrile this am. - Called OSH lab to fu on 48 hour cultures. The lab reported blood cultures at 48 hour was negative and urine culture that was positive for E coli at 48 hours and is sensitive to all groups of antibiotics including Cepahlosporins and Ciprfloxacin. -Pt discharged on Omnicef- 300mg bid for 10 days - Fu with Pmd Dr Reba Bianchi on Saturday- 01/08/11. Consider VCUonce the pt is cured. Resolved Problems Problem Noted Date Diagnosed Date Resolved Date Dehydration 01/02/2011 01/03/2011 Overview (01/02/2011): Pt found to be dehydrated upon arrival to ED. Received X 1 in the ED and a second bolus upon arrival to the floor. Lytes indicate hemoconcentration. Continue IVF 1 1/2 maintence and wean as PO intake improves. Consider rechecking electrolytes after clinical signs of dehydration improve. Would also check Cr. At that time with history of recurrent UTI's, Monitor UOP as well as input IVF and oral. Family History * Patient is adopted Medical History Relation Name Comments Diabetes Father Hypertension Father Diabetes Paternal Grandmother Relation Name Status Comments Brother Alive Father Alive Maternal Grandfather Alive Maternal Grandmother Alive Mother Alive Paternal Grandfather Alive Paternal Grandmother Alive Social History Tobacco Use Types Packs/Day Years Used Date Smoking Tobacco: Every Day Smokeless Tobacco: Current Alcohol Use Standard Drinks/Week Comments No 0 (1 standard drink = 0.6 oz pur e alcohol) Comments No Sex and Gender Information Value Date Recorded Sex Assigned at Not on file Legal Sex 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 Gender Identity Not on file Sexual Orientation Not on file Last Filed Vital Signs Vital Sign Reading Time Taken Comments Blood Pressure 117/69 12/28/2019 6:42 PM OUTSIDE SALES ADVERTISING EXECUTIVE Pulse 63 12/28/2019 6:42 PM OUTSIDE SALES ADVERTISING EXECUTIVE Temperature 36.9 C (98.5 F) 12/28/2019 2:43 PM OUTSIDE SALES ADVERTISING EXECUTIVE Respiratory Rate 18 12/28/2019 6:42 PM OUTSIDE SALES ADVERTISING EXECUTIVE Oxygen Saturation 97% 12/28/2019 6:42 PM OUTSIDE SALES ADVERTISING EXECUTIVE Inhaled Oxygen Concentration - - Weight 75 kg (165 lb 5.5 oz) 12/28/2019 3:53 PM OUTSIDE SALES ADVERTISING EXECUTIVE Height 162.6 cm (5' 4) 12/28/2019 3:53 PM OUTSIDE SALES ADVERTISING EXECUTIVE Body Mass Index 28.38 12/28/2019 3:53 PM OUTSIDE SALES ADVERTISING EXECUTIVE Plan of Treatment Health Maintenance Due Date Last Done Comments HIV SCREENING 06/10/2014 HPV VACCINE (1 - 3-dose series) 06/10/2014 CHLAMYDIA/GONORRHEA SCREENING 2015 HEPATITIS C SCREENING 06/06/2017 DTAP/TDAP/TD VACCINES (1 - Tdap) 06/10/2018 HEPATITIS B VACCINE (1 of 3 - 19+ 3-dose series) 06/10/2018 DEPRESSION SCREENING 02/12/2024 COVID-19 VACCINE (1 - 2023-2 5 season) 2024 INFLUENZA VACCINE (#1) 2024 ZOSTER VACCINE (1 of 2) 06/10/2049 HIB VACCINE Aged Out No longer eligi ble based on patient's age to complete this topic MENINGOCOCCAL (Group B) VACC INE SHARED DECISION-MAKING Aged Out No longer eligibl e based on patient's age to complete this topic MENINGOCOCCAL GROUPS A/C/Y/W VACCINE Aged Out No longer eligible b ased on patient's age to complete this topic PNEUMOCOCCAL VACCINE Aged Out No long er eligible based on patient's age to complete this topic Insurance MEDICAID - PENDING MEDICAID - [place] [facility] Care Teams Service Technician Relationship Specialty Start Date End Date Reba Bianchi MD [address] [place] [address] [facility] - General 09/26/21
--- NOTE | 2024-11-22 11:04 | ED_ITS ---
HPI - Nausea/Vomiting/Diarrhea General Chief complaint: Nausea/Vomiting/Diarrhea Stated complaint: Vomiting Time Seen by Provider: 11/22/24 11:05 Source: patient Mode of arrival: ambulatory Limitations: no limitations History of Present Illness HPI Narrative: Lenka is a 24-year-old female patient presenting to the clinic today with complaints of nasal congestion, headache, productive cough with some yellow phlegm, nausea, vomiting, and diarrhea. She reports cough for and runny nose is been going on for 3 days. Reported starting having diarrhea last night x5. Has vomited 10 times this morning since 5:00 a.m. No blood in her stool. No fevers, chills, body aches. She denies any abdominal pain. Last menstrual period was November 08. Denies any concern for . Denies any urinary symptoms or vaginal discharge. Mother recently tested positive for influenza. Related Data Allergies Allergy/AdvReac Type Severity Reaction Status Date / Time No Known Allergies Allergy Unknown Verified 11/22/24 11:02 Review of Systems Review of Systems: Pertinent positives per HPI. Patient denies any fever, chills, rash, visual changes, dizziness, sore throat, shortness of breath, chest pain, palpitations, diarrhea, constipation, abdominal pain, or any urinary issues. [facility] Past Medical History Medical History No pertinent past medical history Surgical History Surgical History No pertinent past surgical history Family History Family History Father Diabetes mellitus Mother Disorder of thyroid Social History Social History Smoking status: Current every day smoker Tobacco type: cigarettes Alcohol intake: current Alcohol use details: occasionally Substance use: never Do You Feel Safe in your Home?: Yes Lack of Transportation: No Lack of Food: Never True Current Housing: I Have Housing Concerned About Future Housing: No Difficulty Paying Gas/Electric Bills: No Difficulty Paying for Meds: No Currently Unemployed: YES Education: High School Diploma/GED Difficulty w/ Childcare or Family Care: No Living arrangements: with family Occupation/Education: occupation Additional occupation/education comments: [employer] Gender identity (if verbalized by the patient): Female Sexual Orientation (if Verbalized by the Patient): Straight or Heterosexual Spiritual care concerns: No Agree to blood products: Yes Comments At the time of my signature, I reviewed and agree with the nursing past medical, surgical, social, and family history. There is no relevant family history pertinent to the patient complaint. Exam Narrative: General: Well-developed, obese, in no apparent distress Head: Normocephalic, atraumatic Eyes: Pupils equally round and reactive to light bilaterally, EOM intact, sclera and conjunctive clear, no discharge, lids normal Ears: TMs intact and clear, ear canals clear, no drainage, grossly hearing normal. Nose: Nares patent, clear nasal discharge, mild inflammation, no sinus tenderness. Mouth: Oropharynx red without lesions or masses, good dentition, MMM. Postnasal drip Neck: Supple, trachea midline, no enlargement of anterior or posterior cervical nodes, no thyroid masses or goiter palpable. Cardio: Regular rate and rhythm, s1 and s2 normal, no murmur appreciated. Resp: Clear to auscultation bilaterally anteriorly and posteriorly, no rhonchi, rales, wheezing or rubs Abdomen: Soft, pliable, bowel sounds present in all quadrants, non-tender to palpation, no organomegly, no CVAT tenderness. Course Course Emergency Course: Portions of this record may have been created with voice recognition software. Level of Care: Express Care Visit Vital Signs Vital signs: Vital Signs Temperature 36.6 C 11/22/24 10:57 Pulse Rate 86 11/22/24 10:57 Respiratory Rate 16 11/22/24 10:57 Blood Pressure 134/96 H 11/22/24 10:57 Pulse Oximetry 99 11/22/24 10:57 Oxygen Delivery Room Air 11/22/24 10:57 Temperature 36.6 C 11/22/24 10:57 Pulse Rate 86 11/22/24 10:57 Respiratory Rate 16 11/22/24 10:57 Blood Pressure 134/96 H 11/22/24 10:57 Pulse Oximetry 99 11/22/24 10:57 Oxygen Delivery Room Air 11/22/24 10:57 Vital signs reviewed MDM - Nausea/Vomiting/Diarrhea MDM Narrative Medical decision making narrative: At the time of visit patient is resting comfortably on the exam table. Patient appears to be nontoxic. Complaints of nasal congestion, headache, productive cough with some yellow phlegm, nausea, vomiting, and diarrhea. She reports cough for and runny nose is been going on for 3 days. Reported starting having diarrhea last night x5. Has vomited 10 times this morning since 5:00 a.m. No blood in her stool. No fevers, chills, body aches. She denies any abdominal pain. Last menstrual period was November 08. Denies any concern for . Denies any urinary symptoms or vaginal discharge. Mother recently tested positive for influenza. COVID and influenza testing was ordered. Labs: COVID and influenza testing was performed and negative in the clinic today. Plan: I suspect patient has URI/gastroenteritis. Prescription for Zofran was sent to the pharmacy. Supportive measures were discussed with the patient and they voiced understanding discharge instructions and agrees to treatment plan. Return precautions reviewed Differential Diagnosis Differential diagnosis: Likely food poisoning, gastroenteritis, drug-induced nausea and vomiting, dehydration and other (Gastritis) Lab Data Labs: Lab Results 11/22/24 Range/Units 11:24 POC Influenza A Ag Negative (Negative) POC Influenza B Ag Negative (Negative) POC SARS CoV-2 Ag Negative (Negative) Discharge Plan Discharge Clinical Impression: Gastroenteritis URI (upper respiratory infection) Qualifiers: URI type: unspecified URI Qualified Code(s): J06.9 - Acute upper respiratory infection, unspecified Patient Disposition: Home Condition: Stable Instructions: Antibiotic Form, Gastroenteritis (ED), Cold Symptoms (ED) Additional Instructions: Take prescription medications only as prescribed-ondansetron for nausea Increase fluids and stay well hydrated May take Tylenol or motrin as directed on bottle for pain/fever May use Flonase 1 spray in each nare daily May take OTC antihistamines such as Zyrtec or Claritin daily as directed on bottle May apply Vicks vapor rub to chest to open sinuses Sinus rinses for congestion Cepacol spray, cough drops, throat lozenges, warm tea with honey/lemon, gargle salt water to soothe throat BRAT diet for diarrhea May take Imodium as needed for diarrhea as long as there is no blood in your stools. Clear liquids x 24 hours then advance as tolerated for nausea/vomiting Go to the ED if you develop a worsening in your condition- high fever not controlled by Tylenol or Motrin, dehydration, weakness, lethargy, shortness of breath, or chest pain. Follow up with your PCP in 3-5 days if symptoms persist. Patient Language: Montserratian Prescriptions: New ondansetron 8 mg tablet,disintegrating 8 mg PO Q8H PRN (Reason: nausea and vomiting) 3 Days Qty: 10 0RF Follow-up/Referrals: Sudhir Murray MD [Primary Care Provider, Family Practice] Stand Alone Forms: Work/School Release IP Time of Disposition: 11:22 Quality NIHSS Nursing Documentation ED NIHSS nursing documentation: reviewed/agree
[2024-11-22 11:25] LABS: EDCOVIDSCREEN Negative (Negative); EDINFLUASCREEN Negative (Negative); EDINFLUBSCREEN Negative (Negative)
== END 2024-11-22 11:31 | disposition home or self-care (01) ==
PROVIDERS: Emergency Provider Nurse Practitioner Family; PCP Family Medicine
DX: K52.9 Noninfective gastroenteritis and colitis, unspecified (principal); J06.9 Acute upper respiratory infection, unspecified; Z20.822 Contact with and (suspected) exposure to COVID-19; F17.210 Nicotine dependence, cigarettes, uncomplicated
CPT/HCPCS: 87426; 87804; 99213; G0463

== ENCOUNTER 2024-12-06 12:14 | Emergency (ER) | payer MEDICAID, SELFPAY ==
--- OUTSIDE RECORDS SUMMARY | 2024-12-06 12:19 | XMS_ITS | Clinical Summary ---
Author Organization [facility] Address [address] [place] [address] Care Team Providers Care Family Law Mediator Name Role Phone Eleonora Donahue ASSOCIATE DIRECTOR FINANCE Primary Care Provider Allergies No known active allergies Medications chlorhexidine [...] on file Legal Sex Female 7:11 PM UNIT SUPPORT REPRESENTATIVE Gender Identity Not on file Sexual Orientation [...] exists Varicella Vaccines Completed 06/10/2007, 08/21/2000 Insurance [employer] [place] [facility] [address] [place] [address] [facility] Care Teams Family Law Mediator Relationship Specialty Start Date End Date Eleonora Donahue NP [address] [place] [address] PCP - General Nurse Practitioner 11/04/23
--- OUTSIDE RECORDS SUMMARY | 2024-12-06 12:19 | XMS_ITS | Clinical Summary ---
Author Organization [facility] Address [address] [place] [address] Care Team Providers Care Supervisor Pumping Name Role Phone Reba Bianchi MD Primary Care Provider [phone] Source Comments [facility],non-owned Affiliates and Associated Physician Practices is amultiple site organization consisting of ambulatory clinics and hospital sitesin [place], [place] and [place]. This disclosure is being madepursuant to the Care Everywhere program and may not contain all information available regarding this patient. Last updated 17.[facility] Allergies No known active allergies Medications * [...] Blood and urine cultures were obtained in [facility]. Assessment: Acute pyelonephritis with dehydration: Plan: - [...] on file Legal Sex Female 12:48 PM SECTION SUPERVISOR Gender Identity Not on file Sexual Orientation Not on file Last Filed Vital Signs Vital Sign Reading Time Taken Comments Blood Pressure 117/69 12/28/2019 6:42 PM SECTION SUPERVISOR Pulse 63 12/28/2019 6:42 PM SECTION SUPERVISOR Temperature 36.9 C (98.5 F) 12/28/2019 2:43 PM SECTION SUPERVISOR Respiratory Rate 18 12/28/2019 6:42 PM SECTION SUPERVISOR Oxygen Saturation 97% 12/28/2019 6:42 PM SECTION SUPERVISOR Inhaled Oxygen Concentration - - Weight 75 kg (165 lb 5.5 oz) 12/28/2019 3:53 PM SECTION SUPERVISOR Height 162.6 cm (5' 4) 12/28/2019 3:53 PM SECTION SUPERVISOR Body Mass Index 28.38 12/28/2019 3:53 PM SECTION SUPERVISOR Plan of Treatment Health Maintenance Due Date [...] Insurance MEDICAID - PENDING [place]ID - [place] [facility] Care Teams Supervisor Pumping Relationship Specialty Start Date End Date Reba Bianchi MD [address] [place] [address] [facility] - General 09/26/21
--- OUTSIDE RECORDS SUMMARY | 2024-12-06 12:19 | XMS_ITS | Clinical Summary ---
Author Organization [facility] Address [address] [place] [address] Phone Care Team Providers Care Seismic Prospecting Observer Name Role Phone Arsalan Diop MD Unavailable Sudhir Murray MD Primary Care Provider Allergies No known active allergies Medications IBUPROFEN [...] to complete this topic Insurance MEDICAID [place] [facility] * Guarantor: Lenka Kwok Account Type Relation to Patient Date of Phone Billing Address Third Alliance Party Liability Self 2000 [address] [place] [address] MEDICAID [place] Care Teams Seismic Prospecting Observer Relationship Specialty Start Date End Date Sudhir Murray MD [address] [place] [address] PCP - General Family Medicine 06/24/24 Arsalan Diop MD [address] [address] Consulting Physician Colon and Rectal Surgery 10/18/21
--- NOTE | 2024-12-06 12:22 | ED.FEMALEGU ---
HPI - Female Genitourinary General Chief complaint: Urogenital-Female Stated complaint: Urinary Problem Time Seen by Provider: 12/06/24 12:22 Source: patient Mode of arrival: ambulatory Limitations: no limitations History of Present Illness HPI Narrative: 24-year-old female presents with complaint of dysuria , frequency, fatigue, nausea and left lower abdominal pain starting today. Patient reports history of frequent urinary tract infections. afebrile. No concern for STI. Denies . All systems reviewed and negative except as noted above. Related Data Allergies Allergy/AdvReac Type Severity Reaction Status Date / Time No Known Allergies Allergy Unknown Verified 12/06/24 12:23 [facility] Past Medical History Medical History No pertinent past medical history Surgical History Surgical History No pertinent past surgical history Family History Family History Father Diabetes mellitus Mother Disorder of thyroid Social History Social History Smoking status: Current every day smoker Tobacco type: cigarettes Alcohol intake: current Alcohol use details: occasionally Substance use: never Do You Feel Safe in your Home?: Yes Lack of Transportation: No Lack of Food: Never True Current Housing: I Have Housing Concerned About Future Housing: No Difficulty Paying Gas/Electric Bills: No Difficulty Paying for Meds: No Currently Unemployed: YES Education: High School Diploma/GED Difficulty w/ Childcare or Family Care: No Living arrangements: with family Occupation/Education: occupation Additional occupation/education comments: [employer] Gender identity (if verbalized by the patient): Female Sexual Orientation (if Verbalized by the Patient): Straight or Heterosexual Spiritual care concerns: No Agree to blood products: Yes Comments At time of signature, agree with nursing past medical, surgical, social and family history. There is no relevant family history pertinent to the presenting complaint. Exam Narrative: GENERAL: This is a well-nourished, well-developed patient, in no apparent distress. HEAD: normocephalic, atraumatic. EYES: PERRL. Sclera clear/white. Vision is grossly intact. EARS: External ears normal NOSE: External nose normal NECK: Neck supple, non-tender without lymphadenopathy, masses or thyromegaly. CARDIOVASCULAR: Regular rate and rhythm without murmurs, gallops, or rubs. RESPIRATORY: Clear to auscultation. Breath sounds equal bilaterally. No wheezes, rales, or rhonchi. SKIN: warm, Dry, intact with no suspicious lesions or rash, good texture and turgor. NEURO: awake, alert, and oriented to person, place and time. There were no obvious focal neurologic abnormalities. EXTREMITIES: No joint tenderness, effusion, or edema noted. Course Course Level of Care: Express Care Visit Vital Signs Vital signs: Vital Signs Temperature 36.6 C 12/06/24 12:24 Pulse Rate 69 12/06/24 12:24 Respiratory Rate 18 12/06/24 12:24 Blood Pressure 117/76 12/06/24 12:24 Pulse Oximetry 99 12/06/24 12:24 Oxygen Delivery Room Air 12/06/24 12:24 Temperature 36.6 C 12/06/24 12:24 Pulse Rate 69 12/06/24 12:24 Respiratory Rate 18 12/06/24 12:24 Blood Pressure 117/76 12/06/24 12:24 Pulse Oximetry 99 12/06/24 12:24 Oxygen Delivery Room Air 12/06/24 12:24 Reviewed MDM - Female Genitourinary MDM Narrative Medical decision making narrative: will treat patient for urinary tract infection due to patient's symptoms . Patient is alert, nontoxic. Urine culture pending. Differential Diagnosis Differential diagnosis: Likely urinary tract infection Discharge Plan Discharge Clinical Impression: Urinary tract infection Patient Disposition: Home Condition: Stable Instructions: Antibiotic Form, Urinary Tract Infection in Women (ED) Additional Instructions: take medications as prescribed. Drink at least 64 oz water a day. See your primary care physician if symptoms are not improving. Patient Language: Chinese Prescriptions: New phenazopyridine [Pyridium] 200 mg tablet 200 mg PO TID PRN (Reason: pain) 3 Days Qty: 10 0RF amoxicillin-pot clavulanate [Augmentin] 500-125 mg tablet 1 tablet PO BID 5 Days Qty: 10 0RF Follow-up/Referrals: Sudhir Murray MD [Primary Care Provider, Family Practice] Stand Alone Forms: Work/School Release IP Time of Disposition: 12:35
[2024-12-06 12:24] VITALS: BP 117/76; PULSE 69; RESP 18; TEMP 36.6; O2SAT 99
[2024-12-06 12:44] LABS: EDUAAPPEAR Clear; EDUABILI Negative (Negative); EDUABLOOD Negative (Negative); EDUACOLOR1 Yellow; EDUAGLUCOSE Negative (Negative); EDUAKETONE Negative (Negative); EDUALEUKO Negative (Negative); EDUANITRATE Negative (Negative); EDUAPH 5.5; EDUAPROTEIN Trace (Negative); EDUASPGRAVITY 1.030; EDUAUROBILI 0.2
== END 2024-12-06 12:42 | disposition home or self-care (01) ==
PROVIDERS: Emergency Provider Nurse Practitioner Family; PCP Family Medicine
DX: N39.0 Urinary tract infection, site not specified (principal); F17.210 Nicotine dependence, cigarettes, uncomplicated
CPT/HCPCS: 81003; 87086; 99213; G0463

== ENCOUNTER 2025-01-16 15:57 | Emergency (ER) | payer OTHER, SELFPAY ==
--- OUTSIDE RECORDS SUMMARY | 2025-01-16 16:01 | XMS_ITS | Encounter Summary ---
Author Organization [facility] Address [address] [place] [address] Phone Care Team Providers Care Rice Dryer Mechanic Name Role Phone Provider, None Primary Care Provider Arsalan Hair MD Unavailable Sudhir Murray MD Primary Care Provider Encounter Details Date Type Department Care Team (Late st Contact Info) Description 12/08/2021 Transcribe Orders [facility] Preop/Pacu II [address] [place] [address] Arsalan Diop MD [address] [address] Pre-op testing (Primary Dx) Social History Tobacco [...] Range for this test is Not Detected) [facility] ID NOW 12/16/2021 1:16 PM CDT [facility] Comment:This test was perfor med by a MOLECULAR, NON-PCR method Other NASOPHARYNGEAL STRUCTURE / Unknown Non-Phlebotomy Collection / Unknown 12/16/2021 12:46 PM CDT 12/16/2021 12:54 PM CDT Narrative [facility] - 12/16/2021 1:16 PM CDT [...] information for Clinicians can be found at: https://www.fda.gov/media/490810/download Additional information for Patients can be found at: https://www.fda.gov/media/514611/download Arsalan Diop MD MICROBIOLOGY - GENERAL ORDERABLE S Final Result [facility] [address] [place] [address] documented in this encounter Visit Diagnoses Diagnosis Pre-op testing- Primary Preoperative examination, unspecified documented in this encounter Additional Health Concerns Infection Onset Date Last Indicated Resolved Time COVID - 19 06/24/2024 06/24/2024 06/24/2024 9:32 AM CDT documented as of this encounter Care Teams Rice Dryer Mechanic Relationship Specialty Start Date End Date Provider, None [place] PCP - General 10/14/21 06/23/24 Sudhir Murray MD [address] [place] [address] PCP - General Family Medicine 06/24/24 Arsalan Diop MD [address] [place] [address] Consulting Physician Colon and Rectal Surgery 10/18/21 documented as of this encounter
--- OUTSIDE RECORDS SUMMARY | 2025-01-16 16:01 | XMS_ITS | Clinical Summary ---
Author Organization [facility] Address [address] [facility] [place] [address] Care Team Providers Care Matrix Plater Name Role Phone Reba Bianchi MD Primary Care Provider [phone] Source Comments [facility],non-owned Affiliates and Associated Physician Practices is amultiple site organization consisting of ambulatory clinics and hospital sitesin [place], [place], [place] and [place]. This disclosure is being madepursuant to the Care Everywhere program and may not contain all information available regarding this patient. Last updated 17.[facility] Allergies No known active allergies Medications * [...] Blood and urine cultures were obtained in [facility]. Assessment: Acute pyelonephritis with dehydration: Plan: - [...] on file Legal Sex Female 12:48 PM BANDER Gender Identity Not on file Sexual Orientation Not on file Last Filed Vital Signs Vital Sign Reading Time Taken Comments Blood Pressure 117/69 12/28/2019 6:42 PM BANDER Pulse 63 12/28/2019 6:42 PM BANDER Temperature 36.9 C (98.5 F) 12/28/2019 2:43 PM BANDER Respiratory Rate 18 12/28/2019 6:42 PM BANDER Oxygen Saturation 97% 12/28/2019 6:42 PM BANDER Inhaled Oxygen Concentration - - Weight 75 kg (165 lb 5.5 oz) 12/28/2019 3:53 PM BANDER Height 162.6 cm (5' 4) 12/28/2019 3:53 PM BANDER Body Mass Index 28.38 12/28/2019 3:53 PM BANDER Plan of Treatment Health Maintenance Due Date Last Done Comments HIV SCREENING 06/10/2014 HPV VACCINE (1 - 3-dose series) 06/10/2014 CHLAMYDIA/GONORRHEA SCREENING 2015 HEPATITIS C SCREENING 06/06/2017 DTAP/TDAP/TD VACCINES (1 - Tdap) 06/10/2018 HEPATITIS B VACCINE (1 of 3 - 19+ 3-dose series) 06/10/2018 DEPRESSION SCREENING 02/12/2024 COVID-19 VACCINE (1 - 2024-2 6 season) 2024 INFLUENZA VACCINE (#1) 2024 ZOSTER [...] Insurance MEDICAID - PENDING MEDICAID - [place] [facility] Care Teams Matrix Plater Relationship Specialty Start Date End Date Reba Bianchi MD [address] [place] [address] [facility] - General 09/26/21
--- OUTSIDE RECORDS SUMMARY | 2025-01-16 16:01 | XMS_ITS | Clinical Summary ---
Author Organization [facility] Address [address] [place] [address] Care Team Providers Care Plater Production Name Role Phone Eleonora Donahue PROJECT LANDSCAPE ARCHITECT Primary Care Provider [phone] Allergies No known active allergies Medications chlorhexidine [...] on file Legal Sex Female 7:11 PM OPERATIONS SUPERINTENDENT Gender Identity Not on file Sexual Orientation [...] exists Varicella Vaccines Completed 06/10/2007, 08/21/2000 Insurance [employer] [place] [facility] [place] [address] [place] [address] [facility] Care Teams Plater Production Relationship Specialty Start Date End Date Eleonora Donahue NP [address] [place] [address] PCP - General Nurse Practitioner 11/04/23
--- OUTSIDE RECORDS SUMMARY | 2025-01-16 16:01 | XMS_ITS | Clinical Summary ---
Author Organization [facility] Address [address] [place] [address] Phone Care Team Providers Care Home Demonstration Agent Name Role Phone Arsalan Diop MD Unavailable Sudhir Murray MD Primary Care Provider [phone] Allergies No known active allergies Medications IBUPROFEN [...] on patient's age to complete this topic Varicella Immunization Completed 06/10/2007, 2000 DTaP/Tdap/Td Immunization Discontinued 2010, 05/25/2004, 08/06/2002, Additional history exists TdaP Immunization Completed 09/21/2010 Meningococcal Immunization (ACWY) Completed 10/24/2016, 09/21/2010 Rotavirus Immunization Aged Out No lo nger eligible based on patient's age to complete this topic Insurance MEDICAID [place] [facility] * Guarantor: Lenka Kwok Account Type Relation to Patient Date of Phone Billing Address [employer] Liability Self 2000 [address] [place] [address] MEDICAID [place] Care Teams Home Demonstration Agent Relationship Specialty Start Date End Date Sudhir Murray MD [facility] [place] [address] PCP - General Family Medicine 06/24/24 Arsalan Diop MD [address] [address] Consulting Physician Colon and Rectal Surgery 10/18/21
--- NOTE | 2025-01-16 16:04 | ED.DENTAL ---
HPI - Dental/Oral General Chief complaint: Dental/Oral Stated complaint: Tooth Pain Time Seen by Provider: 01/16/25 16:05 Source: patient Mode of arrival: ambulatory Limitations: no limitations History of Present Illness HPI Narrative: 24 yo F presents with c/o R lower dental pain for 3 days. Afebrile. Does not have a dentist. All systems reviewed and negative except as noted above. Related Data Allergies Allergy/AdvReac Type Severity Reaction Status Date / Time No Known Allergies Allergy Unknown Verified 01/16/25 16:04 [facility] Past Medical History Medical History No pertinent past medical history Surgical History Surgical History No pertinent past surgical history Family History Family History Father Diabetes mellitus Mother Disorder of thyroid Social History Social History Smoking status: Current every day smoker Tobacco type: cigarettes Alcohol intake: current Alcohol use details: occasionally Substance use: never Lack of Transportation: No Lack of Food: Never True Current Housing: I Have Housing Concerned About Future Housing: No Difficulty Paying Gas/Electric Bills: No Difficulty Paying for Meds: No Currently Unemployed: YES Education: High School Diploma/GED Difficulty w/ Childcare or Family Care: No Living arrangements: with family Occupation/Education: occupation Additional occupation/education comments: [employer] Gender identity (if verbalized by the patient): Female Sexual Orientation (if Verbalized by the Patient): Straight or Heterosexual Spiritual care concerns: No Agree to blood products: Yes Comments At time of signature, agree with nursing past medical, surgical, social and family history. There is no relevant family history pertinent to the presenting complaint. Exam Narrative: GENERAL: This is a well-nourished, well-developed patient, in no apparent distress. HEAD: normocephalic, atraumatic. EYES: PERRL. Sclera clear/white. Vision is grossly intact. EARS: External ears normal NOSE: External nose normal MOUTH: impacted tooth #32 with gum erythema and swelling. no fluctuance concerning for abscess NECK: Neck supple, non-tender without lymphadenopathy, masses or thyromegaly. CARDIOVASCULAR: Regular rate and rhythm without murmurs, gallops, or rubs. RESPIRATORY: Clear to auscultation. Breath sounds equal bilaterally. No wheezes, rales, or rhonchi. SKIN: warm, Dry, intact with no suspicious lesions or rash, good texture and turgor. NEURO: awake, alert, and oriented to person, place and time. There were no obvious focal neurologic abnormalities. EXTREMITIES: No joint tenderness, effusion, or edema noted. Course Course Level of Care: Express Care Visit Vital Signs Vital signs: Reviewed MDM MDM Narrative Medical decision making narrative: will treat right lower dental infection with amoxicillin. Patient is well-appearing, nontoxic. Differential Diagnosis Differential Diagnosis: dental infection, dental abscess Discharge Plan Discharge Clinical Impression: Dental infection Patient Disposition: Home Condition: Stable Instructions: Antibiotic Form, Toothache (ED) Additional Instructions: take antibiotic as prescribed until gone. Follow-up with dentist at next available appointment. Patient Language: Moroccan Prescriptions: New amoxicillin 875 mg tablet 875 mg PO Q12H 10 Days Qty: 20 0RF ibuprofen 600 mg tablet 600 mg PO Q6H PRN (Reason: pain) Qty: 30 0RF Follow-up/Referrals: Sudhir Murray MD [Primary Care Provider, Family Practice] Time of Disposition: 16:10
[2025-01-16 16:05] VITALS: BP 140/91; PULSE 86; RESP 18; TEMP 36.4; O2SAT 98
== END 2025-01-16 16:15 | disposition home or self-care (01) ==
PROVIDERS: Emergency Provider Nurse Practitioner Family; PCP Family Medicine
DX: K04.7 Periapical abscess without sinus (principal); F17.210 Nicotine dependence, cigarettes, uncomplicated
CPT/HCPCS: 99213; G0463